=== PATIENT | female | born 1975 | race Caucasian/White ===

== ENCOUNTER 2017-12-04 16:40 | Inpatient (IN) | payer OTHER ==
[~2017-12-04] VITALS: Ht 175.3 cm; Wt 57.5 kg
[2017-12-04 20:09] LABS: HEMATOCRIT 39.2 % (36.0-46.0); MCH 34.4 PG (29.0-34.0); MCHC 35.7 G/DL (30.0-36.0); MCV 96.3 FL (83-99); PLATELET COUNT 172 K/uL (156-360); RBC DIS.WIDTH-CV 14.2 % (11.8-14.6); RBC DIS.WIDTH-SD 50.6 % (39-53); RED BLOOD COUNT 4.07 M/uL (3.80-5.20); WHITE BLOOD COUNT 9.7 K/uL (4.1-10.2)
[2017-12-04 20:19] LABS: CHLORIDE 104 mEq/L (99-109); POTASSIUM 3.2 mEq/L (3.7-5.4); SODIUM 134 mEq/L (136-147)
[2017-12-04 20:21] LABS: GLUCOSE 100 mg/dL (70-99)
[2017-12-04 20:24] LABS: CREATININE 0.6 mg/dL (0.6-1.3); GFR ESTIMATE (CALCULATED) > 59 mL/min/; SERUM ETHYL ALCOHOL < 10 mg/dL
[2017-12-04 20:25] LABS: UREA NITROGEN (BUN) 5 mg/dL (9-23)
[2017-12-04 20:35] LABS: QUANTITATIVE HCG < 4.0 MIU/ML
[2017-12-04 20:45] LABS: LIPASE 34 U/L (1.0-51.0)
[2017-12-05] VITALS (7 sets, daily range): BP systolic 90–174; BP diastolic 58–105
[2017-12-05 00:22] LABS: ALBUMIN 4.1 g/dL (3.2-4.8)
[2017-12-05 00:23] LABS: MAGNESIUM 1.5 mg/dL (1.3-2.7)
[2017-12-05 00:24] LABS: TOTAL PROTEIN 7.3 g/dL (6.4-8.3)
[2017-12-05 00:26] LABS: TOTAL BILIRUBIN 0.6 mg/dL (0.0-1.0)
[2017-12-05 00:27] LABS: ALKALINE PHOSPHATASE 228 IU/L (3-129)
[2017-12-05 00:30] LABS: ALT (GPT) 81 IU/L (3-49); AST (GOT) 75 IU/L (2-34); DIRECT BILIRUBIN 0.3 mg/dL (0.0-0.3)
[2017-12-05 00:35] LABS: APPEARANCE CLEAR ((CLEAR)); BILIRUBIN NEGATIVE; BLOOD NEGATIVE; COLOR YELLOW ((YELLOW)); GLUCOSE (STRIP) NEGATIVE; KETONES NEGATIVE; LEUKOCYTES NEGATIVE; NITRITE NEGATIVE; PROTEIN (STRIP) NEGATIVE; SPECIFIC GRAVITY 1.009 (1.000-1.030); UCUL ADDED? NO; UROBILINOGEN 0.2 MG/DL (0.2-1.0)
[2017-12-05 00:44] LABS: AMPHETAMINE NEGATIVE (500 ng/mL); COCAINE NEGATIVE (150 ng/mL); METHAMPHETAMINE NEGATIVE (500 ng/mL); OPIATES (MORPHINE) PRESUMPTIVE POSITIVE (100 ng/mL); PHENCYCLIDINE NEGATIVE (25 ng/mL); THC CANNABINOIDS NEGATIVE (50 ng/mL)
[2017-12-05 00:45] LABS: BARBITURATES NEGATIVE (200 ng/mL); BENZODIAZEPINES NEGATIVE (150 ng/mL); BUPRENORPHINE NEGATIVE (10 ng/mL); METHADONE NEGATIVE (200 ng/mL); OXYCODONE NEGATIVE (100 ng/mL); PROPOXYPHENE NEGATIVE (300 ng/mL); TRICYCLIC ANTIDEPRESSANTS NEGATIVE (300 ng/mL)
[2017-12-05 10:40] LABS: ALBUMIN 3.3 G/DL (3.2-4.8); CHLORIDE 105 MEQ/L (99-109); POTASSIUM 3.2 MEQ/L (3.7-5.4); SODIUM 135 MEQ/L (136-147); TOTAL BILIRUBIN 0.8 MG/DL (0.0-1.0)
[2017-12-05 10:46] LABS: ALKALINE PHOSPHATASE 177 IU/L (3-129); ALT (GPT) 46 IU/L (3-49); AST (GOT) 38 IU/L (2-34); CREATININE 0.5 MG/DL (0.6-1.3); GFR ESTIMATE (CALCULATED) > 59 mL/min/; TOTAL PROTEIN 5.9 G/DL (6.4-8.3); UREA NITROGEN (BUN) 7 mg/dL (9-23)
[2017-12-05 10:48] LABS: GLUCOSE 189 mg/dL (70-99)
[2017-12-05 13:16] LABS: HEMOGLOBIN A1c (GLYCOHEMOGLOB) 5.1 % (Below 5.7)
[2017-12-06 04:00] VITALS: BP 159/101
[2017-12-06 07:16] LABS: CHLORIDE 104 MEQ/L (99-109); CREATININE 0.4 MG/DL (0.6-1.3); GFR ESTIMATE (CALCULATED) > 59 mL/min/; GLUCOSE 121 mg/dL (70-99); SODIUM 135 MEQ/L (136-147); UREA NITROGEN (BUN) 5 mg/dL (9-23)
[2017-12-06 07:17] LABS: POTASSIUM 4.1 MEQ/L (3.7-5.4)
[2017-12-06 07:26] VITALS: BP 143/86
[2017-12-06 09:06] LABS: MAGNESIUM 1.5 mg/dl (1.3-2.7)
[2017-12-06 10:26] LABS: CK-MB 1.1 ng/mL (0.0-4.9)
[2017-12-06 10:58] VITALS: BP 131/79
[2017-12-06 13:29] LABS: CKMB RELATIVE INDEX 1.9 (0.0-3.9); CREATINE KINASE 58 IU/L (1-294); TOTAL CK 58 IU/L (1-294)
[2017-12-06 15:14] VITALS: BP 111/74
[2017-12-06 19:00] VITALS: BP 138/101
[2017-12-06 23:59] VITALS: BP 133/89
[2017-12-07 03:28] VITALS: BP 114/77
[2017-12-07 09:01] VITALS: BP 116/85
[2017-12-07 11:06] LABS: HEPATITIS B SURFACE ANTIGEN Nonreactive
[2017-12-07 11:07] LABS: ANTI-HEPATITIS A VIRUS (IGM) Nonreactive; HEPATITIS C ANTIBODY Nonreactive
[2017-12-07 11:08] LABS: ANTI-HEPATITIS B CORE (IGM) Nonreactive
[2017-12-07 13:16] VITALS: BP 119/81
[2017-12-07 15:40] VITALS: BP 133/77
[2017-12-07 20:09] VITALS: BP 116/74
[2017-12-08 00:20] VITALS: BP 142/83
[2017-12-08 04:01] VITALS: BP 140/94
[2017-12-08 08:05] VITALS: BP 128/85
[2017-12-08 17:00] VITALS: BP 133/79
[2017-12-08 23:42] VITALS: BP 141/89
[2017-12-09 07:56] VITALS: BP 136/90
[2017-12-09] MEDS ORDERED: GABAPENTIN300 MG PO (11:45)
[2017-12-09] MEDS ORDERED: CYCLOBENZAPRINE10 MG PO (11:45)
[2017-12-09] MEDS ORDERED: MELOXICAM7.5 MG PO (11:45)
[2017-12-09] MEDS ORDERED: Salonpas 4% Patch TD (11:45)
[2017-12-09] MEDS ORDERED: ACETAMINOPHN-T1 EACH PO (11:45)
== END 2017-12-09 17:45 | disposition home or self-care (01) | DRG 897 ==
LOC: EME 16:40 → 5SOUTH 23:28 → EDOF 23:28 → ENRESERV 23:30 → 5SOUTH 12-05 00:49
PROVIDERS: Hospitalist; Internal Medicine; Physician Assistant; Physician Assistant Medical
DX: F10.239 Alcohol dependence with withdrawal, unspecified (principal); E87.1 Hypo-osmolality and hyponatremia; Z68.1 Body mass index [BMI] 19.9 or less, adult; F33.9 Major depressive disorder, recurrent, unspecified; F11.20 Opioid dependence, uncomplicated; F41.1 Generalized anxiety disorder; F17.210 Nicotine dependence, cigarettes, uncomplicated; E87.6 Hypokalemia; M41.9 Scoliosis, unspecified; M43.06 Spondylolysis, lumbar region; I10 Essential (primary) hypertension; D17.1 Benign lipomatous neoplasm of skin and subcutaneous tissue of trunk; F41.9 Anxiety disorder, unspecified; M54.5 Low back pain; Y90.0 Blood alcohol level of less than 20 mg/100 ml; Z81.8 Family history of other mental and behavioral disorders
CPT/HCPCS: 72070; 72100; 72128; 72131; 74176; 80048; 80053; 80074; 80076; 80306 90; 81003; 82550; 82553; 82948; 83036; 83690; 83735; 84702; 84999; 85027; 85651; 90686; 99281; 99285; G0480; J1200; J1815; J1885; J2060; J2270; J2405; J3411; J3475; J7030; J7512

== ENCOUNTER 2017-12-14 18:11 | Emergency (ER) | payer OTHER ==
[~2017-12-14] VITALS: Ht 175.3 cm; Wt 60.9 kg
[~2017-12-14 18:11] MED LIST: ACETAMINOPHN-T1 EACH PO; CYCLOBENZAPRINE10 MG PO; GABAPENTIN300 MG PO; MELOXICAM7.5 MG PO; Salonpas 4% Patch TD
[2017-12-14] MEDS ORDERED: PERCOCET 5/31 TABLET PO (20:27)
[2017-12-14 20:38] VITALS: BP 136/91
== END 2017-12-14 20:38 | disposition home or self-care (01) ==
LOC: EME 18:11
DX: M54.5 Low back pain (principal); I10 Essential (primary) hypertension; F17.200 Nicotine dependence, unspecified, uncomplicated; W18.30XA Fall on same level, unspecified, initial encounter; Y92.520 Airport as the place of occurrence of the external cause; Z90.49 Acquired absence of other specified parts of digestive tract; Z88.8 Allergy status to other drugs, medicaments and biological substances
CPT/HCPCS: 99281; 99284; J1885; J8540

== ENCOUNTER 2017-12-16 04:26 | Emergency (ER) | payer OTHER ==
[~2017-12-16] VITALS: Ht 175.3 cm; Wt 65.4 kg
[~2017-12-16 04:26] MED LIST changes: +PERCOCET 5/31 TABLET PO
[2017-12-16] MEDS ORDERED: FLEXERIL10 MG PO (05:47)
[2017-12-16] MEDS ORDERED: PREDNISONE20 MG PO (05:47)
[2017-12-16 06:13] LABS: APPEARANCE SL.HAZY ((CLEAR)); BILIRUBIN NEGATIVE; BLOOD NEGATIVE; COLOR YELLOW ((YELLOW)); GLUCOSE (STRIP) NEGATIVE; KETONES NEGATIVE; LEUKOCYTES NEGATIVE; NITRITE NEGATIVE; PROTEIN (STRIP) NEGATIVE; UROBILINOGEN 0.2 MG/DL (0.2-1.0)
[2017-12-16 06:15] VITALS: BP 115/86
[2017-12-16 06:18] LABS: BACTERIA 2+ /HPF; EPITHELIAL CELLS RARE /HPF; MUCUS NONE SEEN /LPF; RED BLOOD CELLS 0-5 /HPF (0-5); UCUL ADDED? YES; WHITE BLOOD CELLS 0-5 /HPF (0-5)
== END 2017-12-16 06:25 | disposition home or self-care (01) ==
LOC: EME 04:26
PROVIDERS: Emergency Medicine
DX: S33.5XXA Sprain of ligaments of lumbar spine, initial encounter (principal); X58.XXXA Exposure to other specified factors, initial encounter; M62.830 Muscle spasm of back; F17.200 Nicotine dependence, unspecified, uncomplicated
CPT/HCPCS: 81003; 81025; 87086; 99281; 99284; J1100; J1885; J2270

== ENCOUNTER 2017-12-20 15:28 | Emergency (ER) | payer OTHER ==
[~2017-12-20] VITALS: Ht 175.3 cm; Wt 65.4 kg
[~2017-12-20 15:28] MED LIST changes: +FLEXERIL10 MG PO; +PREDNISONE20 MG PO
[2017-12-20] MEDS ORDERED: SKELAXIN800 MG PO (16:12)
[2017-12-20] MEDS ORDERED: LIDODERM 5% P1 PATCH TD (16:12)
[2017-12-20] MEDS ORDERED: MOTRIN800 MG PO (16:12)
[2017-12-20 16:53] VITALS: BP 125/89
== END 2017-12-20 16:54 | disposition home or self-care (01) ==
LOC: EME 15:28
DX: M54.5 Low back pain (principal); F10.20 Alcohol dependence, uncomplicated; F17.200 Nicotine dependence, unspecified, uncomplicated; I10 Essential (primary) hypertension
CPT/HCPCS: 99281; 99283; J1885

== ENCOUNTER 2017-12-21 04:22 | Emergency (ER) | payer OTHER ==
[~2017-12-21] VITALS: Ht 175.3 cm; Wt 60.8 kg
[~2017-12-21 04:22] MED LIST changes: +LIDODERM 5% P1 PATCH TD; +MOTRIN800 MG PO; +SKELAXIN800 MG PO
[2017-12-21 06:29] VITALS: BP 140/89
== END 2017-12-21 06:29 | disposition home or self-care (01) ==
LOC: EME 04:22
DX: M54.5 Low back pain (principal); G89.29 Other chronic pain; I10 Essential (primary) hypertension; F10.20 Alcohol dependence, uncomplicated; Z88.8 Allergy status to other drugs, medicaments and biological substances; F17.200 Nicotine dependence, unspecified, uncomplicated
CPT/HCPCS: 99281; 99284; J1100; J2060; J2270